=== PATIENT | female | born 1980 | race Caucasian/White ===

== ENCOUNTER 2024-10-04 10:31 | Outpatient (CLI) | payer BC, SELFPAY | END 2024-10-04 10:32 | disposition home or self-care (01) | PROVIDERS: PCP Family Medicine; Visit Provider Family Medicine | DX: M54.16 Radiculopathy, lumbar region (principal); M51.26 Other intervertebral disc displacement, lumbar region | CPT/HCPCS: 62323; J0702; Q9966 ==